=== PATIENT | male | born 1980 | race Caucasian/White ===

== ENCOUNTER 2018-11-29 11:10 | Emergency (ER) | payer OTHER ==
[~2018-11-29] VITALS: Ht 172.7 cm; Wt 79.4 kg
[2018-11-29] MEDS ORDERED: HYDROCODONE-AP1 EAC6 PO (13:07)
[2018-11-29] MEDS ORDERED: KEFLEX500 M1 PO (13:07)
[2018-11-29 13:44] VITALS: BP 100/77
== END 2018-11-29 13:45 | disposition home or self-care (01) ==
LOC: ER 11:10 → EDBD 11:10 → ER 13:45
DX: S62.633B Displaced fracture of distal phalanx of left middle finger, initial encounter for open fracture (principal); W23.0XXA Caught, crushed, jammed, or pinched between moving objects, initial encounter; Y93.89 Activity, other specified; Y92.89 Other specified places as the place of occurrence of the external cause; Y99.8 Other external cause status